=== PATIENT | female | born 1985 | race Caucasian/White ===

== ENCOUNTER 2018-12-19 12:20 | Emergency (ER) | payer BC ==
[~2018-12-19] VITALS: Ht 157.5 cm; Wt 68.0 kg
--- NOTE | 2018-12-19 12:56 | PHYS DOC ---
Adult General Chief Complaint Chief Complaint: FLANK PAIN HPI HPI Patient is a 33 year old female who presents with complaining of kidney pain. Patient complaining of constant bilateral flank pain for the last 1 week as a constant aching pain with episodes of sharp pain with activity and last for a few seconds. Patient rated her pain 5/10 one week ago and 7/10 at arrival to ER and states that she took ibuprofen without improvement of her pain. Patient complaining of foul smell of urine without dysuria or frequency and denies vaginal bleeding or discharge, fever and chills, abdominal pain, chest pain, shortness of breath, , sick contact. Patient complaining of 5-6 episodes of nonbloody diarrhea a day for the last one week and constant nausea with few episode of vomiting that resolved. Review of Systems Review of Systems Constitutional: Denies fever or chills [] Eyes: Denies change in visual acuity, redness, or eye pain [] HENT: Denies nasal congestion or sore throat [] Respiratory: Denies cough or shortness of breath [] Cardiovascular: No additional information not addressed in HPI [] GI: Reports abdominal pain, nausea, vomiting, diarrhea [] : Denies dysuria or hematuria [] Musculoskeletal: Denies back pain or joint pain [] Integument: Denies rash or skin lesions [] Neurologic: Denies headache, focal weakness or sensory changes [] Endocrine: Denies polyuria or polydipsia [] All other systems were reviewed and found to be within normal limits, except as documented in this note. Current Medications Current Medications Current Medications Medications (Trade) Dose Ordered Sig/Noe Start Time Stop Time Status Last Admin Dose Admin Fentanyl Citrate (Fentanyl 2ml Vial) 50 mcg 1X ONCE 12/19/18 14:30 12/19/18 14:31 DC 12/19/18 14:54 50 MCG Ketorolac Tromethamine (Toradol 30mg Vial) 30 mg 1X ONCE 12/19/18 13:30 12/19/18 13:31 DC 12/19/18 13:34 30 MG Ondansetron HCl (Zofran) 4 mg 1X ONCE 12/19/18 13:15 12/19/18 13:16 DC 12/19/18 13:34 4 MG Sodium Chloride 1,000 ml @ 1,000 mls/hr Q1H 12/19/18 13:15 12/19/18 14:14 DC 12/19/18 13:34 1,000 MLS/HR Allergies Allergies Allergies Coded Allergies Type Severity Reaction Last Updated Verified Sulfa (Sulfonamide Antibiotics) Allergy Unknown 12/19/18 Yes Physical Exam Physical Exam Constitutional: Well developed, well nourished, mild distress, non-toxic appear ance. [] HENT: Normocephalic, atraumatic. Eyes: PERRLA, EOMI, conjunctiva normal, no discharge. [] Neck: Normal range of motion, no tenderness, supple, no stridor. [] Cardiovascular:Heart rate regular rhythm, no murmur [] Lungs & Thorax: Bilateral breath sounds clear to auscultation [] Abdomen: Bowel sounds normal, soft, no tenderness, no masses, no pulsatile masses. [] Skin: Warm, dry, no erythema, no rash. [] Back: No tenderness, no tenderness. [] Extremities: No tenderness, no cyanosis, no clubbing, ROM intact, no edema. [] Neurologic: Alert and oriented X 3, no focal deficits noted. [] Psychologic: Affect normal, judgement normal, mood normal. [] Current Patient Data Vital Signs Vital Signs Date Time Temp Pulse Resp B/P (MAP) Pulse Ox O2 Delivery O2 Flow Rate FiO2 12/19/18 14:54 16 98 Room Air 12/19/18 12:49 98.2 98 141/91 (108) 98.2 Lab Values Laboratory Tests Test 12/19/18 12:38 12/19/18 13:05 POC Urine HCG, Qualitative Hcg negative (Negative) White Blood Count 7.7 x10^3/uL (4.0-11.0) Red Blood Count 4.84 x10^6/uL (3.50-5.40) Hemoglobin 14.4 g/dL (12.0-15.5) Hematocrit 42.2 % (36.0-47.0) Mean Corpuscular Volume 87 fL (79-100) Mean Corpuscular Hemoglobin 30 pg (25-35) Mean Corpuscular Hemoglobin Concent 34 g/dL (31-37) Red Cell Distribution Width 13.2 % (11.5-14.5) Platelet Count 248 x10^3/uL (140-400) Neutrophils (%) (Auto) 61 % (31-73) Lymphocytes (%) (Auto) 27 % (24-48) Monocytes (%) (Auto) 7 % (0-9) Eosinophils (%) (Auto) 4 % (0-3) H Basophils (%) (Auto) 1 % (0-3) Neutrophils # (Auto) 4.7 x10^3/uL (1.8-7.7) Lymphocytes # (Auto) 2.0 x10^3/uL (1.0-4.8) Monocytes # (Auto) 0.5 x10^3/uL (0.0-1.1) Eosinophils # (Auto) 0.3 x10^3/uL (0.0-0.7) Basophils # (Auto) 0.1 x10^3/uL (0.0-0.2) Urine Collection Type Void Urine Color Yellow Urine Clarity Clear Urine pH 6.0 Urine Specific [place] 1.010 Urine Protein Negative mg/dL (NEG-TRACE) Urine Glucose (UA) Negative mg/dL (NEG) Urine Ketones (Stick) Negative mg/dL (NEG) Urine Blood Negative (NEG) Urine Nitrite Negative (NEG) Urine Bilirubin Negative (NEG) Urine Urobilinogen Dipstick 0.2 mg/dL (0.2 mg/dL) Urine Leukocyte Esterase Negative (NEG) Urine RBC 0 /HPF (0-2) Urine WBC 1-4 /HPF (0-4) Urine Squamous Epithelial Cells Mod /LPF Urine Bacteria Few /HPF (0-FEW) Sodium Level 142 mmol/L (136-145) Potassium Level 3.8 mmol/L (3.5-5.1) Chloride Level 105 mmol/L (98-107) Carbon Dioxide Level 26 mmol/L (21-32) Anion Gap 11 (6-14) Blood Urea Nitrogen 10 mg/dL (7-20) Creatinine 0.6 mg/dL (0.6-1.0) Estimated GFR (Cockcroft-Gault) 113.8 BUN/Creatinine Ratio 17 (6-20) Glucose Level 99 mg/dL (70-99) Calcium Level 9.1 mg/dL (8.5-10.1) Total Bilirubin 0.3 mg/dL (0.2-1.0) Aspartate Amino Transferase (AST) 11 U/L (15-37) L Alanine Aminotransferase (ALT) 19 U/L (14-59) Alkaline Phosphatase 71 U/L (46-116) Total Protein 7.1 g/dL (6.4-8.2) Albumin 3.8 g/dL (3.4-5.0) Albumin/Globulin Ratio 1.2 (1.0-1.7) Lipase 218 U/L (73-393) Laboratory Tests 12/19/18 13:05 Laboratory Tests 12/19/18 13:05 EKG EKG [] Radiology/Procedures Radiology/Procedures [] Course & Med Decision Making Course & Med Decision Making Pertinent Labs reviewed. (See chart for details) Evaluation of patient in ER showed 33-year-old female patient with complaining of bilateral flank pain for 1 week and episode of nausea and diarrhea. Patient had unremarkable physical exam without abnormal CBC or CMP or UA. Patient was informed that she doesn't have any CT of abdomen and pelvis because of unremarkable evaluation. Patient felt better with treatment in ER. Plan discharge patient home to diagnose of gastroenteritis. Dragon Disclaimer Dragon Disclaimer This electronic medical record was generated, in whole or in part, using a voice recognition dictation system. Departure Departure Impression: Primary Impression: Viral gastroenteritis Additional Impression: Flank pain Disposition: HOME, SELF-CARE (at 1513) Condition: IMPROVED Referrals: NO PCP (PCP) Patient Instructions: Flank Pain, Viral Gastroenteritis Additional Instructions: Drink plenty of liquids Follow-up with your primary care physician in 3-5 days Return to ER if not getting better Take [id number] Imodium as needed for diarrhea Do not eat solid food for 24 hours Scripts Ondansetron Hcl (ZOFRAN) 4 Mg Tablet 1 TAB PO PRN Q6-8HRS for nausea, #12 TAB Prov: HEBERT HORNE MD 12/19/18 Tramadol Hcl (ULTRAM) 50 Mg Tablet 50 MG PO Q6HRS PRN for PAIN, #14 TAB 0 Refills Prov: HEBERT HORNE MD 12/19/18 Problem Qualifiers HEBERT HORNE MD Dec 19, 2018 12:56
[2018-12-19] MEDS ORDERED: IV NORMAL SALINE 1000ML BAG 1,000 ML IV SCH (13:15)
[2018-12-19] MEDS ORDERED: ONDANSETRON PF 4 MG/2 ML VIAL. IV ONE (13:15)
[2018-12-19 13:17] LABS: BASO # 0.1 x10^3/uL (0.0-0.2); BASO % 1 % (0-3); EOS # 0.3 x10^3/uL (0.0-0.7); EOS % 4 % (0-3); HEMATOCRIT 42.2 % (36.0-47.0); HEMOGLOBIN 14.4 g/dL (12.0-15.5); LYMPH % 27 % (24-48); MEAN CORPUSCULAR HEMOGLOBIN 30 pg (25-35); MEAN CORPUSCULAR HGB CONC 34 g/dL (31-37); MEAN CORPUSCULAR VOLUME 87 fL (79-100); MONO # 0.5 x10^3/uL (0.0-1.1); MONO % 7 % (0-9); NEUT # 4.7 x10^3/uL (1.8-7.7); NEUT % 61 % (31-73); PLATELET COUNT 248 x10^3/uL (140-400); RED BLOOD COUNT 4.84 x10^6/uL (3.50-5.40); RED CELL DISTRIBUTION WIDTH 13.2 % (11.5-14.5); WHITE BLOOD COUNT 7.7 x10^3/uL (4.0-11.0)
[2018-12-19 13:19] LABS: BILIRUBIN,URINE NEGATIVE (NEG); CLARITY,URINE CLEAR; COLOR,URINE YELLOW; NITRITE,URINE NEGATIVE (NEG); PROTEIN,URINE NEGATIVE (NEG-TRACE); UROBILINOGEN,URINE 0.2 mg/dL (0.2 mg/dL)
[2018-12-19 13:30] LABS: SQUAMOUS EPITHELIAL CELL,UR MOD /LPF
[2018-12-19] MEDS ORDERED: KETOROLAC 30 MG/ML VIAL. IV ONE (13:30)
[2018-12-19 13:31] LABS: BACTERIA,URINE FEW /HPF (0-FEW); RBC,URINE 0 /HPF (0-2)
[2018-12-19 13:34] LABS: CALCIUM 9.1 mg/dL (8.5-10.1); CREATININE 0.6 mg/dL (0.6-1.0); GFR 113.8; POTASSIUM 3.8 mmol/L (3.5-5.1)
[2018-12-19 13:40] LABS: ALBUMIN 3.8 g/dL (3.4-5.0); ALBUMIN/GLOBULIN RATIO 1.2 (1.0-1.7); TOTAL BILIRUBIN 0.3 mg/dL (0.2-1.0); TOTAL PROTEIN 7.1 g/dL (6.4-8.2)
[2018-12-19] MEDS ORDERED: fentaNYL PF VIAL 100 MCG/2 ML VIAL IV ONE (14:30)
[2018-12-19 15:03] VITALS: BP 137/78
[2018-12-19] MEDS ORDERED: ONDA4TAB7 PO ×2 (15:15→15:20)
[2018-12-19] MEDS ORDERED: TRAM-48 PO ×2 (15:15→15:20)
== END 2018-12-19 15:32 | disposition home or self-care (01) ==
LOC: ER 12:20
DX: A08.4 Viral intestinal infection, unspecified (principal); R11.2 Nausea with vomiting, unspecified; Z88.2 Allergy status to sulfonamides
CPT/HCPCS: 36415; 80053; 81001; 81025; 83690; 85025; 96361; 96374; 96375; 99284; J1885; J2405; J3010; J7030; 99285-25

== ENCOUNTER 2019-10-03 23:09 | Emergency (ER) | payer BC ==
[~2019-10-03] VITALS: Ht 157.5 cm; Wt 72.7 kg
[~2019-10-03 23:09] MED LIST: ONDA4TAB7 PO; TRAM-48 PO
[2019-10-04 00:42] LABS: BASO # 0.1 x10^3/uL (0.0-0.2); BASO % 1 % (0-3); EOS # 0.4 x10^3/uL (0.0-0.7); EOS % 3 % (0-3); HEMATOCRIT 42.4 % (36.0-47.0); HEMOGLOBIN 14.7 g/dL (12.0-15.5); LYMPH # 2.6 x10^3/uL (1.0-4.8); LYMPH % 20 % (24-48); MEAN CORPUSCULAR HEMOGLOBIN 30 pg (25-35); MEAN CORPUSCULAR HGB CONC 35 g/dL (31-37); MEAN CORPUSCULAR VOLUME 87 fL (79-100); MONO # 0.9 x10^3/uL (0.0-1.1); MONO % 7 % (0-9); NEUT # 8.7 x10^3/uL (1.8-7.7); NEUT % 69 % (31-73); PLATELET COUNT 293 x10^3/uL (140-400); RED BLOOD COUNT 4.89 x10^6/uL (3.50-5.40); RED CELL DISTRIBUTION WIDTH 12.9 % (11.5-14.5); WHITE BLOOD COUNT 12.6 x10^3/uL (4.0-11.0)
[2019-10-04 00:44] LABS: BILIRUBIN,URINE NEGATIVE (NEG); CLARITY,URINE CLEAR; COLOR,URINE YELLOW; NITRITE,URINE NEGATIVE (NEG); PROTEIN,URINE NEGATIVE (NEG-TRACE); UROBILINOGEN,URINE 0.2 mg/dL (0.2 mg/dL)
[2019-10-04 00:50] LABS: BACTERIA,URINE MANY /HPF (0-FEW); RBC,URINE TNTC /HPF (0-2); SQUAMOUS EPITHELIAL CELL,UR MOD /LPF
[2019-10-04 00:52] LABS: CALCIUM 8.8 mg/dL (8.5-10.1); CREATININE 0.9 mg/dL (0.6-1.0); GFR 70.8; POTASSIUM 3.7 mmol/L (3.5-5.1)
[2019-10-04 00:54] LABS: PREG TEST PT QUAL NEGATIVE (NEG)
[2019-10-04 00:58] LABS: ALBUMIN 3.6 g/dL (3.4-5.0); ALBUMIN/GLOBULIN RATIO 1.1 (1.0-1.7); TOTAL BILIRUBIN 0.2 mg/dL (0.2-1.0); TOTAL PROTEIN 6.9 g/dL (6.4-8.2)
[2019-10-04] MEDS ORDERED: IV NORMAL SALINE 1000ML BAG 1,000 ML IV SCH (01:00)
[2019-10-04] MEDS ORDERED: IOHEXOL 240 MG/ML 50ML VIAL. PO ONE (01:30)
[2019-10-04] MEDS ORDERED: fentaNYL PF VIAL 100 MCG/2 ML VIAL IVP ONE (01:30)
[2019-10-04] MEDS ORDERED: CONTRAST GIVEN. MC PRN (01:30)
[2019-10-04] MEDS ORDERED: IOHEXOL 300 MG/ML 100ML VIAL. IV ONE (01:30)
--- NOTE | 2019-10-04 03:01 | RAD ---
CT scan of the abdomen and pelvis with contrast 10/04/2019 CLINICAL HISTORY: Abdominal pain. TECHNIQUE: After the oral and intravenous administration of contrast, contiguous, 5 mm axial sections were obtained through the abdomen and pelvis. 75 cc of Omnipaque 300 were administered intravenously during this examination. One or more of the following individualized dose reduction techniques were utilized for this study: 1. Automated exposure control. 2. Adjustment of the mA and/or kV according to patient size. 3. Use of iterative reconstruction technique. FINDINGS: Images through the lung bases demonstrate minimal dependent subsegmental atelectasis bilaterally. The liver, spleen, pancreas, adrenal glands and kidneys are within normal limits. The abdominal aorta tapers normally. Mild atherosclerotic calcification abdominal aorta is seen. The gallbladder is slightly contracted. No free fluid or free air is seen within the abdomen. There is no evidence of bowel obstruction. Air and stool are seen throughout the colon. The appendix is well-visualized and is within normal limits. Images through the pelvis demonstrate the urinary bladder distended with urine. Calcifications are seen within the pelvis consistent with phleboliths. A rounded mass is seen which appears to extend posteriorly from the left lower uterine body. This measures 4.5 cm in size and most likely represent a uterine fibroid. Small follicles are seen involving the right ovary. No free fluid is seen. Minimal S-shaped curvature of the thoracolumbar spine is noted. IMPRESSION: 4.5 cm probable uterine fibroid. No acute abnormality is seen. Electronically signed by: James Smith MD (10/04/2019 2:58 AM) [id number]
--- NOTE | 2019-10-04 03:09 | PHYS DOC ---
Past Medical History Past Medical History: Endometriosis Past Surgical History: No Surgical History Smoking Status: Current Every Day Smoker Alcohol Use: Rarely Drug Use: None General Adult EDM: Chief Complaint: ABDOMINAL PAIN HPI: HPI: Patient is a 34 year old female who presents for evaluation of abdominal pain that radiates from her upper abdomen down to her lower abdomen. She states the pain is worse in her lower back and even goes into her legs. Symptoms been progressing for the past 1 week. Patient denies any nausea, vomiting or diarrhea. However she does have some vaginal bleeding and spotting. There is no reported black, bloody or tarry stools. Patient has a history of prior endometriosis but this feels different. No other symptoms reported including fever or chills Review of Systems: Review of Systems: Constitutional: Denies fever or chills. [] Eyes: Denies change in visual acuity. [] HENT: Denies nasal congestion or sore throat. [] Respiratory: Denies cough or shortness of breath. [] Cardiovascular: Denies chest pain or edema. [] GI: lower abdominal pain,but no nausea, vomiting, bloody stools or diarrhea. [] : Denies dysuria. [] Musculoskeletal: has low back pain no joint pain. [] Integument: Denies rash. [] Neurologic: Denies headache, focal weakness or sensory changes. [] Endocrine: Denies polyuria or polydipsia. [] Lymphatic: Denies swollen glands. [] Psychiatric: Denies depression or anxiety. [] Heart Score: Risk Factors: Risk Factors: DM, Current or recent (<one month) smoker, HTN, HLP, family history of CAD, obesity. Risk Scores: Score 0 - 3: 2.5% MACE over next 6 weeks - Discharge Home Score 4 - 6: 20.3% MACE over next 6 weeks - Admit for Clinical Observation Score 7 - 10: 72.7% MACE over next 6 weeks - Early Invasive Strategies Current Medications: Current Medications Medications (Trade) Dose Ordered Sig/Noe Start Time Stop Time Status Last Admin Dose Admin Fentanyl Citrate (Fentanyl 2ml Vial) 50 mcg 1X ONCE 10/04/19 01:30 10/04/19 01:31 DC 10/04/19 01:20 50 MCG Info (CONTRAST GIVEN -- Rx MONITORING) 1 each PRN DAILY PRN 10/04/19 01:30 10/06/19 01:29 Iohexol (Omnipaque 240 Mg/ml) 30 ml 1X ONCE 10/04/19 01:30 10/04/19 01:31 DC 10/04/19 02:10 30 ML Iohexol (Omnipaque 300 Mg/ml) 75 ml 1X ONCE 10/04/19 01:30 10/04/19 01:31 DC 10/04/19 02:10 75 ML Sodium Chloride 1,000 ml @ 1,000 mls/hr Q1H 10/04/19 01:00 10/04/19 01:59 DC 10/04/19 01:07 1,000 MLS/HR Allergies: Allergies: Allergies Coded Allergies Type Severity Reaction Last Updated Verified Sulfa (Sulfonamide Antibiotics) Allergy Intermediate 10/04/19 Yes Physical Exam: PE: Constitutional: Well developed, well nourished, mild to moderate acute distress, non-toxic appearance. [] HENT: Normocephalic, atraumatic, bilateral external ears normal, oropharynx moist, no oral exudates, nose normal. [] Eyes: PERRL, EOMI, conjunctiva normal, no discharge. [] Neck: Normal range of motion, no tenderness, supple. [] Cardiovascular:Heart rate regular rhythm, no murmur [] Lungs & Thorax: Bilateral breath sounds clear to auscultation [] Abdomen: Bowel sounds normal, soft, diffuse tenderness worse lower abdomen, no masses. [] Skin: Warm, dry, no erythema, no rash. [] Back: No tenderness, no CVA tenderness. [] Extremities: No tenderness, no cyanosis, ROM intact, no edema. [] Neurologic: Alert and oriented X 3, normal motor function, normal sensory function, no focal deficits noted. 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 [] Current Patient Data: Labs: Laboratory Tests Test 10/04/19 00:01 10/04/19 00:10 White Blood Count 12.6 x10^3/uL (4.0-11.0) H Red Blood Count 4.89 x10^6/uL (3.50-5.40) Hemoglobin 14.7 g/dL (12.0-15.5) Hematocrit 42.4 % (36.0-47.0) Mean Corpuscular Volume 87 fL (79-100) Mean Corpuscular Hemoglobin 30 pg (25-35) Mean Corpuscular Hemoglobin Concent 35 g/dL (31-37) Red Cell Distribution Width 12.9 % (11.5-14.5) Platelet Count 293 x10^3/uL (140-400) Neutrophils (%) (Auto) 69 % (31-73) Lymphocytes (%) (Auto) 20 % (24-48) L Monocytes (%) (Auto) 7 % (0-9) Eosinophils (%) (Auto) 3 % (0-3) Basophils (%) (Auto) 1 % (0-3) Neutrophils # (Auto) 8.7 x10^3/uL (1.8-7.7) H Lymphocytes # (Auto) 2.6 x10^3/uL (1.0-4.8) Monocytes # (Auto) 0.9 x10^3/uL (0.0-1.1) Eosinophils # (Auto) 0.4 x10^3/uL (0.0-0.7) Basophils # (Auto) 0.1 x10^3/uL (0.0-0.2) Sodium Level 139 mmol/L (136-145) Potassium Level 3.7 mmol/L (3.5-5.1) Chloride Level 104 mmol/L (98-107) Carbon Dioxide Level 26 mmol/L (21-32) Anion Gap 9 (6-14) Blood Urea Nitrogen 10 mg/dL (7-20) Creatinine 0.9 mg/dL (0.6-1.0) Estimated GFR (Cockcroft-Gault) 70.8 BUN/Creatinine Ratio 11 (6-20) Glucose Level 159 mg/dL (70-99) H Calcium Level 8.8 mg/dL (8.5-10.1) Total Bilirubin 0.2 mg/dL (0.2-1.0) Aspartate Amino Transferase (AST) 12 U/L (15-37) L Alanine Aminotransferase (ALT) 28 U/L (14-59) Alkaline Phosphatase 72 U/L (46-116) Total Protein 6.9 g/dL (6.4-8.2) Albumin 3.6 g/dL (3.4-5.0) Albumin/Globulin Ratio 1.1 (1.0-1.7) Lipase 278 U/L (73-393) Serum Test, Qualitative Negative (NEG) Urine Collection Type Unknown Urine Color Yellow Urine Clarity Clear Urine pH 6.0 (<5.0-8.0) Urine Specific [place] 1.020 (1.000-1.030) Urine Protein Negative mg/dL (NEG-TRACE) Urine Glucose (UA) Negative mg/dL (NEG) Urine Ketones (Stick) Negative mg/dL (NEG) Urine Blood Large (NEG) Urine Nitrite Negative (NEG) Urine Bilirubin Negative (NEG) Urine Urobilinogen Dipstick 0.2 mg/dL (0.2 mg/dL) Urine Leukocyte Esterase Small (NEG) Urine RBC Tntc /HPF (0-2) Urine WBC 5-10 /HPF (0-4) Urine Squamous Epithelial Cells Mod /LPF Urine Bacteria Many /HPF (0-FEW) Urine Mucus Marked /LPF Laboratory Tests 10/04/19 00:01 Laboratory Tests 10/04/19 00:01 Vital Signs: Vital Signs Date Time Temp Pulse Resp B/P (MAP) Pulse Ox O2 Delivery O2 Flow Rate FiO2 10/04/19 01:44 97 16 126/90 (102) 97 Room Air 10/03/19 23:51 98.0 98.0 EKG: EKG: [] Radiology/Procedures: Radiology/Procedures: [facility] [address] [place] [address] IMAGING REPORT Signed PATIENT: ELVIRA RENNER ACCOUNT: [id number] : 1985 LOCATION: ER AGE: 34 SEX: F EXAM STATUS: REG ER ORD. PHYSICIAN: PAULINA HERNANDEZ DO REASON: abd pain PROCEDURE: CT ABD PELV W/ORAL&IV CONTRAST CT scan of the abdomen and pelvis with contrast 10/04/2019 CLINICAL HISTORY: Abdominal pain. TECHNIQUE: After the oral and intravenous administration of contrast, contiguous, 5 mm axial sections were obtained through the abdomen and pelvis. 75 cc of Omnipaque 300 were administered intravenously during this examination. One or more of the following individualized dose reduction techniques were utilized for this study: 1. Automated exposure control. 2. Adjustment of the mA and/or kV according to patient size. 3. Use of iterative reconstruction technique. FINDINGS: Images through the lung bases demonstrate minimal dependent subsegmental atelectasis bilaterally. The liver, spleen, pancreas, adrenal glands and kidneys are within normal limits. The abdominal aorta tapers normally. Mild atherosclerotic calcification abdominal aorta is seen. The gallbladder is slightly contracted. No free fluid or free air is seen within the abdomen. There is no evidence of bowel obstruction. Air and stool are seen throughout the colon. The appendix is well-visualized and is within normal limits. Images through the pelvis demonstrate the urinary bladder distended with urine. Calcifications are seen within the pelvis consistent with phleboliths. A rounded mass is seen which appears to extend posteriorly from the left lower uterine body. This measures 4.5 cm in size and most likely represent a uterine fibroid. Small follicles are seen involving the right ovary. No free fluid is seen. Minimal S-shaped curvature of the thoracolumbar spine is noted. IMPRESSION: 4.5 cm probable uterine fibroid. No acute abnormality is seen. Electronically signed by: James Smith MD (10/04/2019 2:58 AM) [id number] DICTATED and SIGNED BY: JAMES SMITH MD DATE: 10/04/19 0258 [] Course & Med Decision Making: Course & Med Decision Making Pertinent Labs and Imaging studies reviewed. (See chart for details) [] Dragon Disclaimer: Dragon Disclaimer: This electronic medical record was generated, in whole or in part, using a voice recognition dictation system. 0425 stable, pain is controlled at this time. Patient has 4.5 cm uterine fibroid. No other acute findings found on CT scan. Remainder of blood work and urinalysis is unremarkable. Patient treated prophylactically with Rocephin 200 mg IM and Zithromax 1 g p.o. Prescription for limited number of tramadol given. Patient will call and see her ECHOCARDIOGRAPH TECHNICIAN right away in follow-up. Departure Departure Impression: Primary Impression: Lower abdominal pain Additional Impressions: Uterine fibroid Qualified Codes: D25.9 - Leiomyoma of uterus, unspecified Acute UTI Disposition: HOME, SELF-CARE Condition: STABLE Referrals: NO PCP (PCP) STELLA CAMARILLO MD Patient Instructions: Urinary Tract Infection, Uterine Fibroid, [id number] Additional Instructions: Pelvic rest, use pads at this time. Call and see your ECHOCARDIOGRAPH TECHNICIAN closely in follow- up. You have a moderate sized uterine fibroid Scripts Tramadol Hcl (TRAMADOL HCL) 50 Mg Tablet 50 MG PO DAILY PRN for PAIN, #10 TAB 0 Refills Prov: PAULINA HERNANDEZ DO 10/04/19 Cephalexin (CEPHALEXIN) 500 Mg Tablet 1 TAB PO QID for 7 Days, #28 TAB Prov: PAULINA HERNANDEZ DO 10/04/19 Justicifation of Admission Dx: Justifications for Admission: Justification of Admission Dx: N/A PAULINA HERNANDEZ DO Oct 04, 2019 03:09
[2019-10-04] MEDS ORDERED: TRAM50TA PO (04:29)
[2019-10-04] MEDS ORDERED: CEPH500T PO (04:29)
[2019-10-04 04:56] VITALS: BP 129/80
[2019-10-04] MEDS ORDERED: AZITHROMYCIN 250 MG TABLET. PO ONE (05:00)
[2019-10-04] MEDS ORDERED: cefTRIAXone IM 250 MG VIAL IM ONE (05:00)
[2019-10-05 21:09] LABS: GC PROBE Negative (Negative)
== END 2019-10-04 04:57 | disposition home or self-care (01) ==
LOC: ER 23:09
DX: N39.0 Urinary tract infection, site not specified (principal); D25.9 Leiomyoma of uterus, unspecified; R10.30 Lower abdominal pain, unspecified; R11.2 Nausea with vomiting, unspecified; M54.5 Low back pain; F17.200 Nicotine dependence, unspecified, uncomplicated; Z88.2 Allergy status to sulfonamides; Z79.899 Other long term (current) drug therapy
CPT/HCPCS: 74177; 80053; 81001; 83690; 84703; 85025; 87491; 87591; 96374; 96375; 99285; J0696; J3010; J7030; Q0111; Q9966; Q9967; 36415